=== PATIENT | male | born 1980 | race Caucasian/White ===

== ENCOUNTER 2019-01-28 00:56 | Emergency (ER) | payer SELFPAY ==
[~2019-01-28] VITALS: Ht 157.5 cm; Wt 76.2 kg
[~2019-01-28 00:56] MED LIST: ATI.5 PO
[2019-01-28 01:10] VITALS: BP 154/92
--- NOTE | 2019-01-28 01:10 | NUR ---
PT AMBULATED TO BED 3.
--- NOTE | 2019-01-28 01:20 | NUR ---
PT BIB SELF FOR DRY COUGH, HEADACHE AND NAUSEA. RR EVEN AND UNLABORED, BL BS CLEAR THROUGHOUT, PT IN NO RR DISTRESS. PT AWAKE AND ALERT SITTING IN BED.
--- NOTE | 2019-01-28 01:37 | NUR ---
RAD AT BEDSIDE
[2019-01-28 03:05] VITALS: BP 145/89
--- NOTE | 2019-01-28 03:05 | NUR ---
PT DISCHARGED WITH PAPERWORK. RX MPROMETHAZINE, ZOFRAN, MOTRIN. EDUCATED PT REGARDING MEDICATIONS AND S/E. EDUCATED PT REGARDING D/C DIAGNOSIS AND INSTRUCTIONS. PT VERBALIZED UNDERSTANDING OF TEACHING. TOLD PT TO FOLLOW UP WITH PCP AND WHEN TO RETURN TO ED. PT VSS. ALL QUESTIONS ANSWERED.
== END 2019-01-28 03:05 | disposition home or self-care (01) ==
LOC: MED 00:56
DX: J06.9 Acute upper respiratory infection, unspecified (principal); F41.9 Anxiety disorder, unspecified; Z79.899 Other long term (current) drug therapy
CPT/HCPCS: 71045; 87804; 99284; Q0092

== ENCOUNTER 2020-04-21 02:40 | Emergency (ER) | payer SELFPAY ==
[~2020-04-21] VITALS: Ht 160 cm; Wt 79.4 kg
[2020-04-21 02:45] VITALS: BP 140/74
--- NOTE | 2020-04-21 02:45 | NUR ---
TO TENT AMBULATORY
--- NOTE | 2020-04-21 03:00 | NUR ---
SEEN AND EXAMINED BY ADRIANNE WITH ORDERS AND CARRIED OUT.
[2020-04-21] MEDS ORDERED: ALBUTEROL SULFATE/IPRATROPIU 3 ML SOL IH ONE (03:10)
[2020-04-21] MEDS ORDERED: cefTRIAXone 1,000 MG in LIDOCAINE MPF 1% 2.1 ML IM ONE (03:10)
[2020-04-21] MEDS ORDERED: DEXAMETHASONE 10 MG/ML VIAL IM ONE (03:10)
[2020-04-21] MEDS ORDERED: AZITHROMYCIN 250 MG TAB PO ONE (03:10)
--- NOTE | 2020-04-21 03:25 | NUR ---
SWAB DONE AND SENT TO LAB
--- NOTE | 2020-04-21 04:00 | NUR ---
MEDICATED PER ERMDS ORDER, TOLERATED WELL.
[2020-04-21] MEDS ORDERED: cefTRIAXone 1,000 MG VIAL ONE (04:12)
--- NOTE | 2020-04-21 05:00 | NUR ---
ALL RESULTS BACK AND NOTED BY ERMD AND FOR D/C
[2020-04-21 05:10] VITALS: BP 118/76
--- NOTE | 2020-04-21 05:10 | NUR ---
Patient discharged with v/s stable. Written and verbal after care instructions given and explained. Patient alert, oriented and verbalized understanding of instructions. Ambulatory with steady gait. All questions addressed prior to discharge. ID band removed. Patient advised to follow up with PMD. Rx of AZITHROMYCIN, ALBUTEROL,PREDNISONE, AUGMENTIN given. Patient educated on indication of medication including possible reaction and side effects. Opportunity to ask questions provided and answered.
== END 2020-04-21 05:10 | disposition home or self-care (01) ==
LOC: MED 02:40
DX: U07.1 COVID-19 (principal); F41.9 Anxiety disorder, unspecified
CPT/HCPCS: 71045; 87426; 87804; 94640; 99284; J0696; J1100

== ENCOUNTER 2020-08-27 23:40 | Emergency (ER) | payer SELFPAY ==
[~2020-08-27] VITALS: Ht 157.5 cm; Wt 85.7 kg
[2020-08-27 23:59] VITALS: BP 147/92
--- NOTE | 2020-08-28 00:16 | NUR ---
PATIENT AMBUALTED TO BED 11 WITH STEADY GAIT.
[2020-08-28 00:56] VITALS: BP 112/68
--- NOTE | 2020-08-28 00:59 | NUR ---
see complete assessment.
--- NOTE | 2020-08-28 01:12 | NUR ---
Dr. Velez with pt for MSE
[2020-08-28] MEDS ORDERED: NACL 0.9% 1,000 ML IV ONE (01:15)
--- NOTE | 2020-08-28 01:24 | NUR ---
provided pt with urinal
[2020-08-28 01:27] LABS: BASOPHILS % (AUTO) 0.6 % (0.0-2.0); EOSINOPHILS % (AUTO) 0.3 % (0.0-4.0); HEMATOCRIT 41.2 % (36-52); HEMOGLOBIN 14.2 g/dL (12.0-18.0); LYMPHOCYTES # (AUTO) 1.3 K/uL (2.0-11.5); LYMPHOCYTES % (AUTO) 16.3 % (20.5-51.1); MEAN CORPUSCULAR HEMOGLOBIN 31 pg (27-31); MEAN CORPUSCULAR HGB CONC 35 g/dL (33-37); MEAN CORPUSCULAR VOLUME 88.8 fL (80-94); MONOCYTES # (AUTO) 0.5 K/uL (0.8-1.0); MONOCYTES % (AUTO) 6.8 % (1.7-9.3); PLATELET COUNT (AUTO) 260 K/uL (140-450); RED BLOOD CELL COUNT(AUTO) 4.64 MIL/uL (4.20-6.10); RED CELL DISTRIBUTION WIDTH 12.7 % (11.6-13.7); WHITE BLOOD COUNT (AUTO) 7.9 K/uL (4.8-10.8)
--- NOTE | 2020-08-28 01:35 | NUR ---
xr at bedside
[2020-08-28 01:45] LABS: ALBUMIN 3.7 g/dL (3.4-5.0); ANION GAP 14.2 (8-16); POTASSIUM 4.2 mmol/L (3.5-5.1); TOTAL BILIRUBIN 0.1 mg/dL (0.0-1.0)
[2020-08-28 01:51] LABS: BARBITURATE, URINE NEGATIVE ng/ml (NEG <=200); BENZODIAZEPINE, URINE NEGATIVE ng/mL (NEG <=200); CANNABINOID, URINE POSITIVE ng/mL (NEG <=50); COCAINE, URINE NEGATIVE ng/mL (NEG <=300); OPIATE, URINE NEGATIVE ng/mL (NEG <=2000); PHENCYCLIDINE SCREEN,URINE NEGATIVE ng/mL (NEG <=25)
--- NOTE | 2020-08-28 02:56 | NUR ---
d/c with VSS. d/c education given. opportunity to ask questions given and answered. no rx given.
== END 2020-08-28 02:52 | disposition home or self-care (01) ==
LOC: MED 23:40
DX: R00.2 Palpitations (principal); R51.9 Headache, unspecified
CPT/HCPCS: 36415; 71045; 80053; 80305; 83690; 84484; 85025; 85379; 93005; 96360; 99285; G0482; J7030

== ENCOUNTER 2020-09-05 16:04 | Emergency (ER) | payer SELFPAY ==
[~2020-09-05] VITALS: Ht 157.5 cm; Wt 85.3 kg
[2020-09-05 16:10] VITALS: BP 157/77
--- NOTE | 2020-09-05 16:13 | NUR ---
Patient ambulated to bed 11. RN evaluating the patient at bedside.
--- NOTE | 2020-09-05 16:34 | NUR ---
MARCELA Barnhart is evaluating the patient at bedside.
--- NOTE | 2020-09-05 16:40 | NUR ---
X-Ray at bedside.
--- NOTE | 2020-09-05 16:40 | NUR ---
39/M presents to ED with c/o anxiety since 3pm. Patient states he began feeling anxious at home and took ativan with no relief. Patient states he began feeling numbness in his hands and feet and felt his extremities were cold. Patient states "I felt like I was going to pass out." Patient has good ROM in all extremities, equal sensation, patient appears anxious and had a heart rate of 120 upon arrival. Patient placed in gown on bedside equipment monitor phototypesetting, heart rate at 105 at this time.
[2020-09-05] MEDS: ASPIRIN 325 MG TAB PO ONE (16:50)
[2020-09-05] MEDS: LORazepam 2 MG/ML VIAL IVP ONE (16:50)
[2020-09-05] MEDS: NACL 0.9% 1,000 ML IV ONE (16:51)
[2020-09-05 16:52] LABS: BASOPHILS # (AUTO) 0.2 K/uL (0.00-0.22); EOSINOPHILS # (AUTO) 0.1 K/uL (0-0.4); EOSINOPHILS % (AUTO) 0.8 % (0.0-4.0); HEMATOCRIT 42.6 % (36-52); HEMOGLOBIN 14.7 g/dL (12.0-18.0); LYMPHOCYTES # (AUTO) 2.1 K/uL (2.0-11.5); LYMPHOCYTES % (AUTO) 22.8 % (20.5-51.1); MEAN CORPUSCULAR HEMOGLOBIN 31 pg (27-31); MEAN CORPUSCULAR HGB CONC 35 g/dL (33-37); MEAN CORPUSCULAR VOLUME 89.3 fL (80-94); MONOCYTES # (AUTO) 0.8 K/uL (0.8-1.0); MONOCYTES % (AUTO) 8.6 % (1.7-9.3); NEUTROPHILS # (AUTO) 5.9 K/uL (1.8-7.7); NEUTROPHILS % (AUTO) 65.8 % (42.2-75.2); PLATELET COUNT (AUTO) 290 K/uL (140-450); RED BLOOD CELL COUNT(AUTO) 4.77 MIL/uL (4.20-6.10); RED CELL DISTRIBUTION WIDTH 12.5 % (11.6-13.7)
[2020-09-05 17:00] LABS: PROTHROMBIN TIME 9.9 secs (10.8-13.4)
--- NOTE | 2020-09-05 17:05 | NUR ---
Urine collected and walked down to lab
[2020-09-05 17:17] LABS: ANION GAP 10.8 (8-16); CARBON DIOXIDE 28.2 mmol/L (21-32); CHLORIDE 100 mmol/L (98-107); GLUCOSE 119 mg/dL (74-106); SODIUM SERUM 135 mmol/L (136-145); UREA NITROGEN, BLOOD 19 mg/dL (7-18)
[2020-09-05 17:18] LABS: ALBUMIN 3.8 g/dL (3.4-5.0); ASPARTATE AMINOTRANSFERASE 47 U/L (15-37); FREE T4 (FREE THYROXINE) 0.84 ng/dL (0.76-1.46); GFR ARICAN-AMERICAN 106 mL/min (>90); THYROID STIMULATING HORMONE 0.91 uIU/mL (0.34-3.74); TOTAL BILIRUBIN 0.3 mg/dL (0.0-1.0)
[2020-09-05 18:13] LABS: BARBITURATE, URINE NEGATIVE ng/ml (NEG <=200); BENZODIAZEPINE, URINE NEGATIVE ng/mL (NEG <=200); CANNABINOID, URINE POSITIVE ng/mL (NEG <=50); COCAINE, URINE NEGATIVE ng/mL (NEG <=300); OPIATE, URINE NEGATIVE ng/mL (NEG <=2000); PHENCYCLIDINE SCREEN,URINE NEGATIVE ng/mL (NEG <=25)
[2020-09-05] MEDS ORDERED: LORA-476 PO (18:19)
--- NOTE | 2020-09-05 18:30 | NUR ---
Patient discharged with v/s stable. Written and verbal after care instructions given and explained. Patient alert, oriented and verbalized understanding of instructions. Ambulatory with steady gait. All questions addressed prior to discharge. ID band removed. Patient advised to follow up with PMD. Rx of Ativan given. Patient educated on indication of medication including possible reaction and side effects. Opportunity to ask questions provided and answered. Vitals upon discharge 129/87, Pulse 114, 99% oxygen, respiration 22, PA Barnhart made aware.
[2020-09-05 18:31] VITALS: BP 129/87
== END 2020-09-05 18:30 | disposition home or self-care (01) ==
LOC: MED 16:04
DX: R07.9 Chest pain, unspecified (principal); F41.0 Panic disorder [episodic paroxysmal anxiety]; Z79.899 Other long term (current) drug therapy
CPT/HCPCS: 36415; 71045; 80053; 80305; 81002; 83735; 84439; 84443; 84484; 85025; 85379; 85610; 93005; 96361; 96374; 99285; G0482; J2060; J7030